=== PATIENT | female | born 1970 | race Caucasian/White ===

== ENCOUNTER → 2019-08-20 17:49 | Outpatient (CLI) | payer OTHER, SELFPAY ==
--- NOTE | ~2019-08-20 | MM_ITS ---
EXAMINATION: MM screening rosas BI w farhana HISTORY: Screening mammogram TECHNIQUE: Craniocaudal and mediolateral oblique 3-D tomosynthesis images were obtained and synthetic 2-D images were generated. CAD analysis was submitted and interpreted. COMPARISON: 05/13/2017 bilateral digital screening mammogram 05/07/2016 bilateral diagnostic digital mammogram 05/01/2016, 04/06/2015 bilateral digital screening mammogram examinations BREAST PARENCHYMAL COMPOSITION: There are scattered areas of fibroglandular density. FINDINGS: There is no evidence of suspicious mass, calcification, or architectural distortion to sugg est malignancy in either breast. There has been no suspicious interval change. IMPRESSION: 1. No mammographic evidence of malignancy. 2. Recommend routine screening mammography in one year. BI-RADS Category 1: Negative Reviewed, dictated and finalized at location A. Y REP
== END ==
PROVIDERS: PCP Internal Medicine; Visit Provider Nurse Practitioner
DX: Z12.31 Encounter for screening mammogram for malignant neoplasm of breast (principal)
CPT/HCPCS: 77063; 77067

== ENCOUNTER 2020-02-14 00:55 | Outpatient (CLI) | payer OTHER, SELFPAY ==
[2020-02-14 19:34] LABS: SARS-CoV-2 RNA PCR Negative
== END 2020-02-14 00:56 | disposition home or self-care (01) ==
LOC: ANHCOVIDDT 00:56
PROVIDERS: PCP Internal Medicine; Visit Provider Internal Medicine Gastroenterology
DX: Z01.812 Encounter for preprocedural laboratory examination (principal); Z20.828 Contact with and (suspected) exposure to other viral communicable diseases
CPT/HCPCS: 87635; C9803; U0003

== ENCOUNTER 2020-02-16 02:00 | Day surgery (SDC) | payer OTHER, SELFPAY ==
[2020-02-11 10:25] VITALS: BMI 38.0
--- NOTE | 2020-02-14 14:36 | WPDANESEPPF ---
Anes - Initial Pre Proc Eval Procedure: Operation Date: 02/16/20 09:00 Proposed Procedures p Colonoscopy - Donn Cary MD Date/Time: 02/14/20 14:36 Surgeon: Donn Cary MD Pre Op Diagnosis: Rectal Bleeding Patient Data Age: 50 Gender: F Height: 1.65 m Weight: 103.6 kg Allergies Allergy/AdvReac Type Severity Reaction Status Date / Time Penicillins Allergy Mild Hives Verified 02/16/20 08:40 Home Medications Medication Instructions Recorded Confirmed Type No Home Medications 02/11/20 02/16/20 History Patient hx anesthesia problems: none Family hx anesthesia problems: none Anes - Eval Final PreProcedure Day of Procedure 02/14/20 14:36 Patient weight: obese Heart: regular rate and rhythm Lungs: clear to auscultation and normal air movement Airway: Mallampati scale Neurological: alert and oriented Last oral intake: >/= 8 hours ASA classification: II Emergent: no Anesthetic plan: proceed Anesthesia type and monitoring: general GIVS and standard monitoring Informed Consent: The patient's anesthetic plan and its attendant risks and benefits were discussed with the patient/family/POA. Questions were solicited and answers provided to the satisfaction of the patient/family/POA.
[2020-02-16 08:41] VITALS: BP 157/91; PULSE 100; RESP 18; TEMP 37.4; O2SAT 100
[2020-02-16] MEDS: LACTATED RINGERS 1,000 ML 150 ML IV CONT (08:54)
--- NOTE | 2020-02-16 09:28 | P.CONGI_ITS ---
Assessment and Plan Assessment and plan (1) Rectal bleeding: Code(s): K62.5 - Hemorrhage of anus and rectum Status: Acute Assessment and Plan: Because of significant rectal bleeding colonoscopy will be performed. High- fiber diet advised fiber supplement such as Benefiber may be of additional benefit. Further recommendations will be given after colonoscopy. GI Consult Note Consult date/time: 02/16/20 09:28 HPI: Tasneem Coe is a 50 year old female seen in evaluation at the request of Dr De La Cruz and Dr Wong. Patient reports recent onset of bright red blood per rectum. Sometimes described as rather heavy amount. She notes occasional rectal discomfort. She states her bowel habits are otherwise normal. Sometimes more constipating during her menstrual cycle. She denies any fever. She denies any weight loss. Her family history is noncontributory. She presents today for colonoscopy. Review of Systems Review of Systems: All systems reviewed & are unremarkable except as noted in HPI and below Meds Home Medications and Allergies Home Medications Medication Instructions Recorded Confirmed Type No Home Medications 02/11/20 02/16/20 History Allergies Allergy/AdvReac Type Severity Reaction Status Date / Time Penicillins Allergy Mild Hives Verified 02/16/20 08:40 Vital Signs Vital Signs - 24 hr 02/16/20 08:41 Temperature 99.3 F Pulse Rate 100 Respiratory Rate 18 Blood Pressure 157/91 H Pulse Oximetry 100 Exam Narrative: Exam Narrative: Physical exam reveals patient to be alert. Vital signs stable. HEENT exam unremarkable. Lungs are clear to auscultation and percussion. Heart is without murmur or extra sounds. Abdominal exam bowel sounds are present soft nontender with no organomegaly. Digital external rectal exam is normal.
[2020-02-16 09:57] VITALS: BP 97/62; PULSE 76; RESP 18; O2SAT 97
[2020-02-16 10:07] VITALS: BP 115/78; PULSE 76; RESP 18; O2SAT 98
[2020-02-16 10:17] VITALS: BP 124/70; PULSE 76; RESP 18; O2SAT 98
== END 2020-02-16 10:35 | disposition home or self-care (01) ==
PROVIDERS: PCP Internal Medicine; Visit Provider Internal Medicine Gastroenterology
PROC: 0DJD8ZZ Inspection of Lower Intestinal Tract, Via Natural or Artificial Opening Endoscopic (ICD-10-PCS; CPT 45378; principal; 2020-02-16 09:00)
DX: K64.8 Other hemorrhoids (principal); K62.1 Rectal polyp; D17.5 Benign lipomatous neoplasm of intra-abdominal organs
CPT/HCPCS: 45385; 88305; J2704; J7120

== ENCOUNTER → 2021-01-18 13:21 | Outpatient (CLI) | payer BC, SELFPAY ==
--- NOTE | ~2021-01-18 | MM_ITS ---
EXAMINATION: MM screening rosas BI w farhana HISTORY: Screening mammogram TECHNIQUE: Craniocaudal and mediolateral oblique 3-D tomosynthesis images were obtained and synthetic 2-D images were generated. CAD analysis was submitted and interpreted. COMPARISON: 08/12/2019, 05/13/2017 bilateral digital screening mammogram examinations BREAST PARENCHYMAL COMPOSITION: There are scattered areas of fibroglandular density. FINDINGS: There is no evidence of suspicious mass, calcification, or architectural distortion to sugg est malignancy in either breast. There has been no suspicious interval change. IMPRESSION: 1. No mammographic evidence of malignancy. 2. Recommend routine screening mammography in one year. BI-RADS Category 1: Negative Reviewed, dictated and finalized at location A.
== END ==
PROVIDERS: PCP Internal Medicine; Visit Provider Nurse Practitioner
DX: Z12.31 Encounter for screening mammogram for malignant neoplasm of breast (principal)
CPT/HCPCS: 77063; 77067

== ENCOUNTER → 2022-04-05 13:42 | Outpatient (CLI) | payer BC, SELFPAY ==
--- NOTE | ~2022-04-05 | MM_ITS ---
EXAMINATION: MM screening rosas BI w farhana HISTORY: Screening TECHNIQUE: Craniocaudal and mediolateral oblique 3-D tomosynthesis images were obtained and synthetic 2-D images were generated. CAD analysis was submitted and interpreted. COMPARISON: Comparison to multiple prior studies sequentially, with oldest reviewed study dated 07/07. BREAST PARENCHYMAL COMPOSITION: Breast composed of scattered areas of fibroglandular density FINDINGS: The left breast is stable without evidence for malignancy. There is developing nodules of t he right breast in the periareolar location. IMPRESSION: 1. Developing nodular asymmetries of the right breast. 2. Additional mammographic views and possible breast ultrasound are recommended. BI-RADS Category 0: Incomplete: Needs additional imaging evaluation. Reviewed, dictated and finalized at location A. IMPRESSION: 1. Developing nodular asymmetries of the right breast. 2. Additional mammographic views and possible breast ultrasound are recommended . BI-RADS Category 0: Incomplete: Needs additional imaging evaluation.
== END ==
PROVIDERS: PCP Internal Medicine; Visit Provider Nurse Practitioner
DX: Z12.31 Encounter for screening mammogram for malignant neoplasm of breast (principal); R92.8 Other abnormal and inconclusive findings on diagnostic imaging of breast
CPT/HCPCS: 77063; 77067

== ENCOUNTER → 2022-04-23 09:41 | Outpatient (CLI) | payer BC, SELFPAY ==
--- NOTE | ~2022-04-23 | MMUS_ITS ---
EXAMINATION: MM diagnostic rosas RT w farhana, US breast RT complete HISTORY: Follow-up developing nodular asymmetries of the right breast. TECHNIQUE: Additional 3-D tomosynthesis images of the right breast were performed and synthetic 2-D i mages were generated. CAD analysis was submitted and interpreted. High resolution complete right arturo st ultrasound was performed. COMPARISON: Comparison to multiple prior studies sequentially, with oldest reviewed study dated 02/2016. BREAST PARENCHYMAL COMPOSITION: The breasts are heterogeneously dense, which may obscure small masses FINDINGS: MAMMOGRAPHIC FINDINGS: There is a persistent low-density 5 mm mass in the upper outer quadrant of the right breast. There ar e no suspicious calcifications or architectural distortion. ULTRASOUND: Complete right breast US of all 4 quadrants of the breasts and retroareolar region was reviewed. At 1 :00, 4 cm from the nipple there is a 4 mm hypoechoic mass with parallel orientation, no internal vasc ularity and no posterior features. At 6:00, 6 cm from the nipple, there is a 9 mm oval hypoechoic mas s with echogenic hilum, parallel orientation, no posterior features and no internal vascularity, like ly benign. At 6:00, 6 cm from the nipple there is an oval hypoechoic mass with low level internal ech oes, parallel orientation, no posterior features and no internal vascularity, likely benign. At 7:00, 8 cm from the nipple there is a 5 mm cyst. At 7:00, 9 cm from the nipple there is an oval hypoechoic mass with parallel orientation, no posterior features and no internal vascularity may measuring 6 mm , likely benign. At 9:00, 8 cm from the nipple there is an oval hypoechoic mass with parallel orienta tion, no posterior features and no internal vascularity and likely benign. IMPRESSION: 1. Probable benign right breast masses. 2. Recommend 6 month follow-up diagnostic right mammogram and right breast ultrasound. BI-RADS category 3, probably benign findings. Reviewed, dictated and finalized at location A. IMPRESSION: 1. Probable benign right breast masses. 2. Recommend 6 month follow-up diagnostic right mammogram and right breast ultr asound. BI-RADS category 3, probably benign findings.
== END ==
PROVIDERS: PCP Internal Medicine; Visit Provider Obstetrics & Gynecology Gynecology
DX: R92.8 Other abnormal and inconclusive findings on diagnostic imaging of breast (principal)
CPT/HCPCS: 76641; 77061; 77065; G0279

== ENCOUNTER → 2022-10-22 08:40 | Outpatient (CLI) | payer BC, SELFPAY ==
--- NOTE | ~2022-10-22 | MMUS_ITS ---
EXAMINATION: MM diagnostic rosas RT w farhana, US breast RT limited HISTORY: Six-month follow-up for probably benign right breast masses TECHNIQUE: Craniocaudal, mediolateral, and mediolateral oblique 3-D tomosynthesis images of the nova ts were performed and synthetic 2-D images were generated. CAD analysis was submitted and interpreted . High resolution limited bilateral breast ultrasound was performed. COMPARISON: 04/23/2022, 04/05/2022, 01/18/2021, 08/12/2019 BREAST PARENCHYMAL COMPOSITION: The breasts are heterogeneously dense, which may obscure small masses . FINDINGS: MAMMOGRAPHIC FINDINGS: There is a stable 5 mm mass in the middle third of the lower-outer breast at the location 7 cm from t he nipple. A previously described mass in the upper outer quadrant definitely identified ULTRASOUND: The previously described mass at the 1:00 location is no longer identified. There is a stable 5 mm ov al, circumscribed, parallel, hypoechoic mass at the 6:00 location, 6 cm from the nipple with no poste rior features or internal vascularity. Masses at the 7:00, 9:00, and 11:00 locations with similar son ographic features are stable. IMPRESSION: 1. Probably benign right breast masses. 2. Recommend 6 month follow-up diagnostic mammogram and right breast ultrasound. BI-RADS category 3, probably benign findings. Reviewed, dictated and finalized at location A. IMPRESSION: 1. Probably benign right breast masses. 2. Recommend 6 month follow-up diagnostic mammogram and right breast ultrasound . BI-RADS category 3, probably benign findings.
== END ==
PROVIDERS: PCP Internal Medicine; Visit Provider Obstetrics & Gynecology Gynecology
DX: R92.8 Other abnormal and inconclusive findings on diagnostic imaging of breast (principal)
CPT/HCPCS: 76642; 77061; 77065; G0279